=== PATIENT | male | born 1945 | race Caucasian/White ===

== ENCOUNTER 2018-10-26 21:47 | Emergency (ER) | payer MEDICARE ==
[2018-10-26 21:54] VITALS: RESP 18
[2018-10-26] MEDS: SODIUM CHLORIDE 0.9% 500 ML 500 ML IV SCH ×2 (22:53→23:31)
[2018-10-26 23:22] LABS: HCT 46.3 % (39.0-53.0); MCH 33.4 pg (25.0-35.0); MCHC 34.6 g/dL (31.0-37.0); MCV 96.5 fL (80.0-100.0); Mean Platelet Volume 6.7; Platelet Count 272 k/uL (150-450); WBC 19.7 k/uL (3.8-10.6)
[2018-10-26 23:25] LABS: Partial Thromboplastin Time 25.9 sec (22.0-30.0); Prothrombin Time 10.5 sec (9.0-12.0)
[2018-10-26 23:32] LABS: ALT 25 U/L (21-72); AST 27 U/L (17-59); African American GFR (CKD) >90 (>60 ml/min/1.73 sqM); Albumin 4.5 g/dL (3.5-5.0); Alkaline Phosphatase 80 U/L (38-126); Anion Gap 13 mmol/L; Blood Urea Nitrogen 24 mg/dL (9-20); Calcium 9.5 mg/dL (8.4-10.2); Carbon Dioxide 22 mmol/L (22-30); Chloride 104 mmol/L (98-107); Glucose 116 mg/dL (74-99); Potassium 3.9 mmol/L (3.5-5.1); Sodium 139 mmol/L (137-145); Total Bilirubin 1.5 mg/dL (0.2-1.3); Total Protein 7.4 g/dL (6.3-8.2)
[2018-10-26 23:43] LABS: Band Neutrophils % 15 %; Lymphocytes # (M) 0.79 k/uL (1.0-4.8); Monocytes # (M) 0.99 k/uL (0-1.0); Neutrophils % (M) 76 %; Nucleated Red Blood Cells 0 /100 WBC (0-0); Total Cells Counted 100
[2018-10-27 00:39] VITALS: BP 109/74; PULSE 88; TEMP 98.1
--- NOTE | 2018-10-27 00:50 | CT ---
EXAM: CT Abdomen and Pelvis With Intravenous Contrast CLINICAL HISTORY: Abdominal pain. Nausea and vomiting. TECHNIQUE: Axial computed tomography images of the abdomen and pelvis with intravenous contrast. CTDI is 9.3 mGy and DLP is 395.2 mGy-cm. This CT exam was performed using one or more of the following dose reduction techniques: automated exposure control, adjustment of the mA and/or kV according to patient size, and/or use of iterative reconstruction technique. COMPARISON: None. FINDINGS: Lung bases: Subsegmental atelectasis at the lung bases as well as the lingula is noted. Mediastinum: Small hiatal hernia ABDOMEN: Liver: Very mild fatty infiltration of the liver. 1.4 cm simple cyst at the upper pole region of the right kidney is noted. Gallbladder and bile ducts: Unremarkable. No calcified stones. No ductal dilation. Pancreas: Unremarkable. No mass. No ductal dilation. Spleen: Unremarkable. No splenomegaly. Adrenals: Unremarkable. No mass. Kidneys and ureters: No hydronephrosis. A 0.5 cm probable simple cyst in the lower pole region of the left kidney. Stomach and bowel: Fluid within the stomach. Minimal concentric thickening of the villa of the rectosigmoid of uncertain significance and etiology. Inflammatory and infectious etiology should be considered. Nonspecific bowel gas pattern. No obstruction. PELVIS: Appendix: No findings to suggest acute appendicitis. Bladder: Unremarkable. No mass. Reproductive: Unremarkable as visualized. ABDOMEN and PELVIS: Intraperitoneal space: Unremarkable. No free air. No significant fluid collection. Bones/joints: Moderate to severe degenerative disc disease of the spinal column. Mild osteoarthritic changes of the sacroiliac joints. Advanced degenerative disc disease of the spinal column. Multilevel vacuum discs are noted. No acute fracture. No dislocation. Soft tissues: Unremarkable. Vasculature: Atherosclerotic disease of the abdominal aorta is noted extending into the common iliac arteries without aneurysmal dilatation. Lymph nodes: Unremarkable. No enlarged lymph nodes. IMPRESSION: Minimal concentric thickening of the villa of the rectosigmoid of uncertain significance and etiology. Clinical correlation is advised. Simple renal cysts. Subsegmental atelectasis at the lung bases. Small hiatal hernia.
--- NOTE | 2018-10-27 01:12 | ED ---
Abdominal Pain HPI - General Chief Complaint: Abdominal Pain Stated Complaint: Vomiting/diarrhea Time Seen by Provider: 10/26/18 21:56 Source: patient Mode of arrival: ambulatory Limitations: no limitations - History of Present Illness Initial Comments: Russ is a pleasant 73-year-old gentleman who presents the emergency department today for evaluation of abdominal cramping and diarrhea. Patient denies any past medical history, he has lived for the past 7-[address] [facility] ([place], [place]) in [place]. He reports he was told recently that he is too old and is unsafe to live alone so he moved in with his son here in [place]. Patient does not have primary care physician. Patient states that he has gone to the emergency department as needed for medical care. He has no diagnoses that he is aware of and takes no medications. Patient states for the past couple days he's had abdominal cramping and nausea today he had multiple loose stools with no blood but decided to the ER for evaluation. She denies any fevers, chills, chest pain, shortness of breath. He doesn't believe he's had a colonoscopy in the past. Denies any history of diverticulitis diverticulosis. - Related Data Previous Rx's Medication Instructions Recorded Amoxic-Pot Clav 875-125Mg 1 tab PO Q12HR 7 Days #14 tablet 10/27/18 [Augmentin 875-125] Allergies Allergy/AdvReac Type Severity Reaction Status Date / Time No Known Allergies Allergy Verified 10/26/18 22:26 Review of Systems ROS Statement: Those systems with pertinent positive or pertinent negative responses have been documented in the HPI. ROS Other: All systems not noted in ROS Statement are negative. Past Medical History Past Medical History: No Reported History History of Any Multi-Drug Resistant Organisms: None Reported Past Surgical History: No Surgical Hx Reported Past Psychological History: PTSD Smoking Status: Never smoker Past Alcohol Use History: None Reported Past Drug Use History: None Reported General Exam - General Exam Comments Initial Comments: Physical Exam GENERAL: Patient is well-developed and well-nourished. Patient is nontoxic and well- hydrated and is in no distress. HENT: Normocephalic, Atraumatic. Normal dentition EYES: PERRL, EOMI PULMONARY: Unlabored respirations. No audible rales rhonchi or wheezing was noted. CARDIOVASCULAR: There is a regular rate and rhythm without any murmurs gallops or rubs. ABDOMEN: Soft and nontender with normal bowel sounds. No pulsatile masses No organomegaly SKIN: Skin is clear with no lesions or rashes and otherwise unremarkable. : Deferred NEUROLOGIC: Patient is alert and oriented x3. Moving all extremities spontaneously MUSCULOSKELETAL: Normal extremities with adequate strength and full range of motion. No lower extremity swelling or edema. No calf tenderness. PSYCHIATRIC: Normal psychiatric evaluation. Limitations: no limitations Course Vital Signs 10/26/18 10/27/18 21:49 00:38 Temperature 98.4 F 98.1 F Pulse Rate 114 H 88 Respiratory 18 18 Rate Blood Pressure 146/82 109/74 O2 Sat by Pulse 98 96 Oximetry Medical Decision Making - Medical Decision Making The patient was seen and evaluated history was obtained from the patient and son at bedside This is a 73-year-old gentleman with minimal outpatient medical care presenting with mild abdominal pain nausea, vomiting and diarrhea Labs and imaging were ordered given the patient's advanced age computed tomography scan was ordered Labs resulted with significant leukocytosis, otherwise relatively unremarkable Computed tomography scan suggestive of possible sigmoid colitis, these results were discussed with the patient and son at bedside. This time patient is eager for discharge home. Patient declining any pain medication is agreeable to discharge home with oral antibiotics. Patient will be referred to primary care physician for follow-up. - Lab Data Result diagrams: 10/26/18 22:35 10/26/18 22:35 Lab Results 10/26/18 10/26/18 10/26/18 Range/Units 22:35 22:35 22:35 WBC 19.7 H (3.8-10.6) k/uL RBC 4.80 (4.30-5.90) m/uL Hgb 16.0 (13.0-17.5) gm/dL Hct 46.3 (39.0-53.0) % MCV 96.5 (80.0-100.0) fL MCH 33.4 (25.0-35.0) pg MCHC 34.6 (31.0-37.0) g/dL RDW 14.0 (11.5-15.5) % Plt Count 272 (150-450) k/uL Neutrophils % (Manual) 76 % Band Neutrophils % 15 % Lymphocytes % (Manual) 4 % Monocytes % (Manual) 5 % Neutrophils # (Manual) 17.90 H (1.3-7.7) k/uL Lymphocytes # (Manual) 0.79 L (1.0-4.8) k/uL Monocytes # (Manual) 0.99 (0-1.0) k/uL Nucleated RBCs 0 (0-0) /100 WBC Manual Slide Review Performed PT (9.0-12.0) sec INR (<1.2) APTT (22.0-30.0) sec Sodium 139 (137-145) mmol/L Potassium 3.9 (3.5-5.1) mmol/L Chloride 104 (98-107) mmol/L Carbon Dioxide 22 (22-30) mmol/L Anion Gap 13 mmol/L BUN 24 H (9-20) mg/dL Creatinine 0.78 (0.66-1.25) mg/dL Est GFR (CKD-EPI)AfAm >90 (>60 ml/min/1.73 sqM) Est GFR (CKD-EPI)NonAf 89 (>60 ml/min/1.73 sqM) Glucose 116 H (74-99) mg/dL Plasma Lactic Acid Jaiden 1.8 (0.7-2.0) mmol/L Calcium 9.5 (8.4-10.2) mg/dL Total Bilirubin 1.5 H (0.2-1.3) mg/dL AST 27 (17-59) U/L ALT 25 (21-72) U/L Alkaline Phosphatase 80 (38-126) U/L Troponin I (0.000-0.034) ng/mL Total Protein 7.4 (6.3-8.2) g/dL Albumin 4.5 (3.5-5.0) g/dL 10/26/18 10/26/18 Range/Units 22:35 22:35 WBC (3.8-10.6) k/uL RBC (4.30-5.90) m/uL Hgb (13.0-17.5) gm/dL Hct (39.0-53.0) % MCV (80.0-100.0) fL MCH (25.0-35.0) pg MCHC (31.0-37.0) g/dL RDW (11.5-15.5) % Plt Count (150-450) k/uL Neutrophils % (Manual) % Band Neutrophils % % Lymphocytes % (Manual) % Monocytes % (Manual) % Neutrophils # (Manual) (1.3-7.7) k/uL Lymphocytes # (Manual) (1.0-4.8) k/uL Monocytes # (Manual) (0-1.0) k/uL Nucleated RBCs (0-0) /100 WBC Manual Slide Review PT 10.5 (9.0-12.0) sec INR 1.0 (<1.2) APTT 25.9 (22.0-30.0) sec Sodium (137-145) mmol/L Potassium (3.5-5.1) mmol/L Chloride (98-107) mmol/L Carbon Dioxide (22-30) mmol/L Anion Gap mmol/L BUN (9-20) mg/dL Creatinine (0.66-1.25) mg/dL Est GFR (CKD-EPI)AfAm (>60 ml/min/1.73 sqM) Est GFR (CKD-EPI)NonAf (>60 ml/min/1.73 sqM) Glucose (74-99) mg/dL Plasma Lactic Acid Jaiden (0.7-2.0) mmol/L Calcium (8.4-10.2) mg/dL Total Bilirubin (0.2-1.3) mg/dL AST (17-59) U/L ALT (21-72) U/L Alkaline Phosphatase (38-126) U/L Troponin I <0.012 (0.000-0.034) ng/mL Total Protein (6.3-8.2) g/dL Albumin (3.5-5.0) g/dL Disposition Clinical Impression: Colitis, Leukocytosis Disposition: HOME SELF-CARE Condition: Stable Instructions (If sedation given, give patient instructions): Colitis (ED) Prescriptions: Amoxic-Pot Clav 875-125Mg [Augmentin 875-125] 1 tab PO Q12HR 7 Days #14 tablet Is patient prescribed a controlled substance at d/c from ED?: No When asked, does pt state using other controlled substances?: No Referrals: None,Stated [Primary Care Provider] - 1-2 days Jamari Chi MD [STAFF PHYSICIAN] - 1-2 days
== END 2018-10-27 01:41 | disposition home or self-care (01) ==
LOC: EC 21:47
DX: K52.9 Noninfective gastroenteritis and colitis, unspecified (principal); D72.829 Elevated white blood cell count, unspecified
CPT/HCPCS: 36415; 93005; 80053; 83605; 84484; 85025; 85610; 85730; 87040; 74177; 99284; Q9967

== ENCOUNTER 2018-10-29 08:26 | Emergency (ER) | payer MEDICARE ==
[2018-10-29 08:40] VITALS: RESP 18
[2018-10-29] MEDS ORDERED: SODIUM CHLORIDE 0.9% 2,000 ML IV STA (09:07)
[2018-10-29] MEDS ORDERED: SODIUM CHLORIDE 0.9% 1,000 ML IV STA (09:07)
--- NOTE | 2018-10-29 09:09 | ED ---
Abdominal Pain HPI - General Chief Complaint: Abdominal Pain Stated Complaint: Colitis Time Seen by Provider: 10/29/18 08:50 Source: patient, RN notes reviewed, old records reviewed Mode of arrival: ambulatory Limitations: no limitations - History of Present Illness Initial Comments: Patient is a 73-year-old male presents emergency department today for evaluation tingling of diarrhea. Patient states that he isn't having crampy abdominal pain. He was here on Saturday evaluated at that time by Dr. Goodman. Upon reviewing her no Patient recently moved here from [place] on Saturday. He developed the diarrhea and cramping abdominal pain since Saturday. At that time is not have leukocytosis and was placed on antibiotics. He reports he's been taking them regularly. He states that last night he started to have severe Pedro's and chills. He states that he's had no history of sick contacts. He reports that he has not been drinking from [facility] or any significant travel history's besides living here from [place]. - Related Data Previous Rx's Medication Instructions Recorded Dicyclomine [Bentyl] 10 mg PO TID #9 capsule 10/29/18 Allergies Allergy/AdvReac Type Severity Reaction Status Date / Time No Known Allergies Allergy Verified 10/29/18 08:40 Review of Systems ROS Statement: Those systems with pertinent positive or pertinent negative responses have been documented in the HPI. ROS Other: All systems not noted in ROS Statement are negative. Past Medical History Past Medical History: No Reported History History of Any Multi-Drug Resistant Organisms: None Reported Past Surgical History: No Surgical Hx Reported Past Psychological History: PTSD Smoking Status: Never smoker Past Alcohol Use History: None Reported Past Drug Use History: None Reported General Exam - General Exam Comments Initial Comments: 73-year-old male. Alert and oriented. No distress. Limitations: no limitations General appearance: alert, in no apparent distress Head exam: Present: atraumatic, normocephalic, normal inspection Eye exam: Present: normal appearance, PERRL, EOMI. Absent: scleral icterus, conjunctival injection, periorbital swelling ENT exam: Present: normal exam, mucous membranes moist Neck exam: Present: normal inspection. Absent: tenderness, meningismus, lymphadenopathy Respiratory exam: Present: normal lung sounds bilaterally. Absent: respiratory distress, wheezes, rales, rhonchi, stridor Cardiovascular Exam: Present: regular rate, normal rhythm, normal heart sounds. Absent: systolic murmur, diastolic murmur, rubs, gallop, clicks GI/Abdominal exam: Present: soft, normal bowel sounds. Absent: distended, tenderness, guarding, rebound, rigid Extremities exam: Present: normal inspection, full ROM, normal capillary refill. Absent: tenderness, pedal edema, joint swelling, calf tenderness Back exam: Present: normal inspection Neurological exam: Present: alert, oriented X3, CN II-XII intact Psychiatric exam: Present: normal affect, normal mood Skin exam: Present: warm, dry, intact, normal color. Absent: rash Course Vital Signs 10/29/18 08:37 Temperature 98.3 F Pulse Rate 75 Respiratory 18 Rate Blood Pressure 106/69 O2 Sat by Pulse 98 Oximetry Medical Decision Making - Medical Decision Making This Patient is a 73-year-old male presents emergency department today for evaluation for recheck. He was diagnosed with colitis and states that he was having some cramping last night into today and felt the need to come in for reevaluation. Upon arrival here he states is no significant cramping is feeling well. He states that he has been having nonbloody stools. At this time patient's labwork was reviewed and did show a decrease of his white blood cell count from his last ER visit. He recently moved here from [place] does not have a PCP. Patient came here she does show some signs of colitis or enteritis. He is not vomiting. No signs of obstruction. Patient was given fluid boluses. Again nontender. Patient vital signs are stable. I discussed we can have the Patient continue the antibiotics that he's been taking for colitis of Augmentin. He is only had 3 doses of this. I discussed the Patient should follow-up with primary care physicians. He has not called them yet so I discussed that he needs to do so by the end of this week. Discussed discharge the Patient with the contents possible stool occult study. Discussed that he can follow-up with primary is return here for recheck. - Lab Data Result diagrams: 10/29/18 09:05 10/29/18 09:05 Lab Results 10/29/18 10/29/18 10/29/18 Range/Units 09:05 09:05 09:05 WBC 8.7 (3.8-10.6) k/uL RBC 4.41 (4.30-5.90) m/uL Hgb 14.9 (13.0-17.5) gm/dL Hct 43.1 (39.0-53.0) % MCV 97.7 (80.0-100.0) fL MCH 33.7 (25.0-35.0) pg MCHC 34.5 (31.0-37.0) g/dL RDW 13.7 (11.5-15.5) % Plt Count 243 (150-450) k/uL Neutrophils % 76 % Lymphocytes % 9 % Monocytes % 10 % Eosinophils % 3 % Basophils % 2 % Neutrophils # 6.6 (1.3-7.7) k/uL Lymphocytes # 0.8 L (1.0-4.8) k/uL Monocytes # 0.8 (0-1.0) k/uL Eosinophils # 0.2 (0-0.7) k/uL Basophils # 0.2 (0-0.2) k/uL PT (9.0-12.0) sec INR (<1.2) APTT (22.0-30.0) sec Sodium 140 (137-145) mmol/L Potassium 4.0 (3.5-5.1) mmol/L Chloride 105 (98-107) mmol/L Carbon Dioxide 26 (22-30) mmol/L Anion Gap 9 mmol/L BUN 10 (9-20) mg/dL Creatinine 0.80 (0.66-1.25) mg/dL Est GFR (CKD-EPI)AfAm >90 (>60 ml/min/1.73 sqM) Est GFR (CKD-EPI)NonAf 88 (>60 ml/min/1.73 sqM) Glucose 97 (74-99) mg/dL Plasma Lactic Acid Jaiden 1.2 (0.7-2.0) mmol/L Calcium 9.4 (8.4-10.2) mg/dL Total Bilirubin 1.0 (0.2-1.3) mg/dL AST 20 (17-59) U/L ALT 17 L (21-72) U/L Alkaline Phosphatase 68 (38-126) U/L Total Protein 7.1 (6.3-8.2) g/dL Albumin 4.3 (3.5-5.0) g/dL Amylase 84 (30-110) U/L Lipase 127 (23-300) U/L 10/29/18 Range/Units 09:05 WBC (3.8-10.6) k/uL RBC (4.30-5.90) m/uL Hgb (13.0-17.5) gm/dL Hct (39.0-53.0) % MCV (80.0-100.0) fL MCH (25.0-35.0) pg MCHC (31.0-37.0) g/dL RDW (11.5-15.5) % Plt Count (150-450) k/uL Neutrophils % % Lymphocytes % % Monocytes % % Eosinophils % % Basophils % % Neutrophils # (1.3-7.7) k/uL Lymphocytes # (1.0-4.8) k/uL Monocytes # (0-1.0) k/uL Eosinophils # (0-0.7) k/uL Basophils # (0-0.2) k/uL PT 10.2 (9.0-12.0) sec INR 0.9 (<1.2) APTT 21.4 L (22.0-30.0) sec Sodium (137-145) mmol/L Potassium (3.5-5.1) mmol/L Chloride (98-107) mmol/L Carbon Dioxide (22-30) mmol/L Anion Gap mmol/L BUN (9-20) mg/dL Creatinine (0.66-1.25) mg/dL Est GFR (CKD-EPI)AfAm (>60 ml/min/1.73 sqM) Est GFR (CKD-EPI)NonAf (>60 ml/min/1.73 sqM) Glucose (74-99) mg/dL Plasma Lactic Acid Jaiden (0.7-2.0) mmol/L Calcium (8.4-10.2) mg/dL Total Bilirubin (0.2-1.3) mg/dL AST (17-59) U/L ALT (21-72) U/L Alkaline Phosphatase (38-126) U/L Total Protein (6.3-8.2) g/dL Albumin (3.5-5.0) g/dL Amylase (30-110) U/L Lipase (23-300) U/L - Radiology Data Radiology results: report reviewed Correlate for enteritis or colitis. Follow-up is indicated. Disposition Clinical Impression: Colitis Disposition: HOME SELF-CARE Condition: Good Instructions (If sedation given, give patient instructions): Colitis (ED) Additional Instructions: Patient have a clear liquid or soft food diet. Recommended prompt follow-up with primary care physician. Return to the emergency department if any alarming signs or symptoms occur. Prescriptions: Dicyclomine [Bentyl] 10 mg PO TID #9 capsule Is patient prescribed a controlled substance at d/c from ED?: No Referrals: None,Stated [Primary Care Provider] - 1-2 days Time of Disposition: 11:10
[2018-10-29 09:34] LABS: ALT 17 U/L (21-72); AST 20 U/L (17-59); African American GFR (CKD) >90 (>60 ml/min/1.73 sqM); Albumin 4.3 g/dL (3.5-5.0); Alkaline Phosphatase 68 U/L (38-126); Amylase 84 U/L (30-110); Anion Gap 9 mmol/L; Basophils # (A) 0.2 k/uL (0-0.2); Basophils % (A) 2 %; Blood Urea Nitrogen 10 mg/dL (9-20); Calcium 9.4 mg/dL (8.4-10.2); Carbon Dioxide 26 mmol/L (22-30); Chloride 105 mmol/L (98-107); Eosinophils # (A) 0.2 k/uL (0-0.7); Eosinophils % (A) 3 %; Glucose 97 mg/dL (74-99); HCT 43.1 % (39.0-53.0); HGB 14.9 gm/dL (13.0-17.5); Lymphocytes # (A) 0.8 k/uL (1.0-4.8); Lymphocytes % (A) 9 %; MCH 33.7 pg (25.0-35.0); MCHC 34.5 g/dL (31.0-37.0); MCV 97.7 fL (80.0-100.0); Mean Platelet Volume 7.4; Monocytes # (A) 0.8 k/uL (0-1.0); Monocytes % (A) 10 %; Neutrophils # (A) 6.6 k/uL (1.3-7.7); Neutrophils % (A) 76 %; Platelet Count 243 k/uL (150-450); RBC 4.41 m/uL (4.30-5.90); RDW 13.7 % (11.5-15.5); Sodium 140 mmol/L (137-145); Total Protein 7.1 g/dL (6.3-8.2); WBC 8.7 k/uL (3.8-10.6)
[2018-10-29 09:35] LABS: INR 0.9 (<1.2); Prothrombin Time 10.2 sec (9.0-12.0)
[2018-10-29 09:36] LABS: Partial Thromboplastin Time 21.4 sec (22.0-30.0)
--- NOTE | 2018-10-29 09:37 | XR ---
KUB HISTORY: Abdominal pain, diarrhea and vomiting Frontal KUB submitted and correlated to prior CT 10/27/2018 Multiple air-fluid levels are present. No definite bowel distention. Lung bases are clear. No pneumop eritoneum. Scoliotic curvature present in the lumbar spine, there is degenerative disc change. Phlebo lith noted within the pelvis. IMPRESSION: Correlate for enteritis, colitis, follow-up as indicated.
[2018-10-29] MEDS ORDERED: DICYCLOMINE 10 MG CAP PO STA (11:06)
--- NOTE | 2018-10-29 11:12 | ED ---
Medical Decision Making - Lab Data Result diagrams: 10/29/18 09:05 10/29/18 09:05 Lab Results 10/29/18 10/29/18 10/29/18 Range/Units 09:05 09:05 09:05 WBC 8.7 (3.8-10.6) k/uL RBC 4.41 (4.30-5.90) m/uL Hgb 14.9 (13.0-17.5) gm/dL Hct 43.1 (39.0-53.0) % MCV 97.7 (80.0-100.0) fL MCH 33.7 (25.0-35.0) pg MCHC 34.5 (31.0-37.0) g/dL RDW 13.7 (11.5-15.5) % Plt Count 243 (150-450) k/uL Neutrophils % 76 % Lymphocytes % 9 % Monocytes % 10 % Eosinophils % 3 % Basophils % 2 % Neutrophils # 6.6 (1.3-7.7) k/uL Lymphocytes # 0.8 L (1.0-4.8) k/uL Monocytes # 0.8 (0-1.0) k/uL Eosinophils # 0.2 (0-0.7) k/uL Basophils # 0.2 (0-0.2) k/uL PT (9.0-12.0) sec INR (<1.2) APTT (22.0-30.0) sec Sodium 140 (137-145) mmol/L Potassium 4.0 (3.5-5.1) mmol/L Chloride 105 (98-107) mmol/L Carbon Dioxide 26 (22-30) mmol/L Anion Gap 9 mmol/L BUN 10 (9-20) mg/dL Creatinine 0.80 (0.66-1.25) mg/dL Est GFR (CKD-EPI)AfAm >90 (>60 ml/min/1.73 sqM) Est GFR (CKD-EPI)NonAf 88 (>60 ml/min/1.73 sqM) Glucose 97 (74-99) mg/dL Plasma Lactic Acid Jaiden 1.2 (0.7-2.0) mmol/L Calcium 9.4 (8.4-10.2) mg/dL Total Bilirubin 1.0 (0.2-1.3) mg/dL AST 20 (17-59) U/L ALT 17 L (21-72) U/L Alkaline Phosphatase 68 (38-126) U/L Total Protein 7.1 (6.3-8.2) g/dL Albumin 4.3 (3.5-5.0) g/dL Amylase 84 (30-110) U/L Lipase 127 (23-300) U/L 10/29/18 Range/Units 09:05 WBC (3.8-10.6) k/uL RBC (4.30-5.90) m/uL Hgb (13.0-17.5) gm/dL Hct (39.0-53.0) % MCV (80.0-100.0) fL MCH (25.0-35.0) pg MCHC (31.0-37.0) g/dL RDW (11.5-15.5) % Plt Count (150-450) k/uL Neutrophils % % Lymphocytes % % Monocytes % % Eosinophils % % Basophils % % Neutrophils # (1.3-7.7) k/uL Lymphocytes # (1.0-4.8) k/uL Monocytes # (0-1.0) k/uL Eosinophils # (0-0.7) k/uL Basophils # (0-0.2) k/uL PT 10.2 (9.0-12.0) sec INR 0.9 (<1.2) APTT 21.4 L (22.0-30.0) sec Sodium (137-145) mmol/L Potassium (3.5-5.1) mmol/L Chloride (98-107) mmol/L Carbon Dioxide (22-30) mmol/L Anion Gap mmol/L BUN (9-20) mg/dL Creatinine (0.66-1.25) mg/dL Est GFR (CKD-EPI)AfAm (>60 ml/min/1.73 sqM) Est GFR (CKD-EPI)NonAf (>60 ml/min/1.73 sqM) Glucose (74-99) mg/dL Plasma Lactic Acid Jaiden (0.7-2.0) mmol/L Calcium (8.4-10.2) mg/dL Total Bilirubin (0.2-1.3) mg/dL AST (17-59) U/L ALT (21-72) U/L Alkaline Phosphatase (38-126) U/L Total Protein (6.3-8.2) g/dL Albumin (3.5-5.0) g/dL Amylase (30-110) U/L Lipase (23-300) U/L Disposition Clinical Impression: Colitis Disposition: HOME SELF-CARE Condition: Good Instructions (If sedation given, give patient instructions): Colitis (ED) Additional Instructions: Patient have a clear liquid or soft food diet. Recommended prompt follow-up with primary care physician. Return to the emergency department if any alarming signs or symptoms occur. Prescriptions: Dicyclomine [Bentyl] 10 mg PO TID #9 capsule Is patient prescribed a controlled substance at d/c from ED?: No Referrals: None,Stated [Primary Care Provider] - 1-2 days Tanja Chaudhry MD [STAFF PHYSICIAN] - 1-2 days Time of Disposition: 11:12
[2018-10-29 11:51] VITALS: BP 118/76; PULSE 74; TEMP 97.7
[2018-10-29 12:43] LABS: Appearance,Urine Clear (Clear); Bilirubin,Urine Negative (Negative); Blood,Urine Negative (Negative); Color,Urine Yellow; Glucose,Urine (UA) Negative (Negative); Ketones,Urine Negative (Negative); Leukocyte Esterase,Urine Negative (Negative); Nitrite,Urine Negative (Negative); Protein,Urine Trace (Negative); Specific Gravity,Urine 1.013 (1.001-1.035); Urobilinogen,Urine <2.0 mg/dL (<2.0)
== END 2018-10-29 11:50 | disposition home or self-care (01) ==
LOC: EC 08:26
DX: K52.9 Noninfective gastroenteritis and colitis, unspecified (principal)
CPT/HCPCS: 36415; 74018; 80053; 81003; 82150; 83605; 83690; 85025; 85610; 85730; 87045; 87046; 96360; 96361; 99284

== ENCOUNTER 2018-11-06 08:59 | Inpatient (IN) | payer MEDICARE ==
[2018-11-06] MEDS ORDERED: SODIUM CHLORIDE 0.9% 1,000 ML IV STA ×2 (09:33)
[2018-11-06] MEDS ORDERED: HYDROmorphone 0.5 MG/0.5 ML SYRINGE IVP STA (09:33)
[2018-11-06] MEDS ORDERED: ONDANSETRON 4 MG/2 ML VIAL IVP STA (09:33)
--- NOTE | 2018-11-06 09:39 | ED ---
Nausea/Vomiting/Diarrhea HPI - General Chief complaint: Nausea/Vomiting/Diarrhea Stated complaint: NVD Time Seen by Provider: 11/06/18 09:14 Source: patient, EMS, RN notes reviewed, old records reviewed Mode of arrival: EMS Limitations: no limitations - History of Present Illness Initial comments: This is a 73-year-old male with a history of colitis who presents with complaints of one half weeks of persistent episodes of upper abdominal pain nausea vomiting and diarrhea. He states it feels similar to his previous episodes he feels lightheaded dizzy decreased oral intake some left upper quadrant area pain. He denies any overt fevers chills sweats dysuria he does state his urine is more concentrated than usual. No other modifying factors MD complaint: nausea, vomiting, diarrhea, abdominal pain - Related Data Home Medications Medication Instructions Recorded Confirmed No Known Home Medications 11/06/18 11/06/18 Allergies Allergy/AdvReac Type Severity Reaction Status Date / Time No Known Allergies Allergy Verified 11/06/18 09:13 Review of Systems ROS Statement: Those systems with pertinent positive or pertinent negative responses have been documented in the HPI. ROS Other: All systems not noted in ROS Statement are negative. Past Medical History Past Medical History: No Reported History History of Any Multi-Drug Resistant Organisms: None Reported Past Surgical History: No Surgical Hx Reported Past Psychological History: PTSD Smoking Status: Never smoker Past Alcohol Use History: None Reported Past Drug Use History: None Reported General Exam - General Exam Comments Initial Comments: This is a well-developed asthenic appearing awake alert oriented 3 Limitations: no limitations General appearance: alert, in no apparent distress Head exam: Present: atraumatic, normocephalic, normal inspection Eye exam: Present: normal appearance, PERRL, EOMI. Absent: scleral icterus, conjunctival injection, periorbital swelling ENT exam: Present: mucous membranes dry Neck exam: Present: normal inspection. Absent: tenderness, meningismus, lymphadenopathy Respiratory exam: Present: normal lung sounds bilaterally. Absent: respiratory distress, wheezes, rales, rhonchi, stridor Cardiovascular Exam: Present: regular rate, normal rhythm, normal heart sounds. Absent: systolic murmur, diastolic murmur, rubs, gallop, clicks GI/Abdominal exam: Present: soft, tenderness (Left upper quadrant tenderness palpation no guarding rebound masses or bruits), normal bowel sounds. Absent: distended, guarding, rebound, rigid Extremities exam: Present: normal inspection, full ROM, normal capillary refill. Absent: tenderness, pedal edema, joint swelling, calf tenderness Back exam: Present: normal inspection Neurological exam: Present: alert, oriented X3, CN II-XII intact Psychiatric exam: Present: normal affect, normal mood Skin exam: Present: warm, dry, intact, normal color. Absent: rash Course Vital Signs 11/06/18 11/06/18 11/06/18 09:01 11:25 12:58 Temperature 97.9 F Pulse Rate 63 80 68 Respiratory 16 20 18 Rate Blood Pressure 113/73 109/66 100/58 O2 Sat by Pulse 98 100 96 Oximetry Medical Decision Making - Medical Decision Making I did discuss the findings with the patient. Patient be admitted case is discussed with Dr. baron - Lab Data Result diagrams: 11/06/18 09:45 11/06/18 09:45 Lab Results 11/06/18 11/06/18 11/06/18 Range/Units 09:45 09:45 09:45 WBC 20.0 H (3.8-10.6) k/uL RBC 4.92 (4.30-5.90) m/uL Hgb 16.7 (13.0-17.5) gm/dL Hct 47.7 (39.0-53.0) % MCV 97.1 (80.0-100.0) fL MCH 33.9 (25.0-35.0) pg MCHC 34.9 (31.0-37.0) g/dL RDW 13.6 (11.5-15.5) % Plt Count 223 (150-450) k/uL Neutrophils % (Manual) 84 % Band Neutrophils % 3 % Lymphocytes % (Manual) 5 % Monocytes % (Manual) 8 % Neutrophils # (Manual) 17.40 H (1.3-7.7) k/uL Lymphocytes # (Manual) 1.00 (1.0-4.8) k/uL Monocytes # (Manual) 1.60 H (0-1.0) k/uL Nucleated RBCs 0 (0-0) /100 WBC Manual Slide Review Performed RBC Morphology Normal Sodium 142 (137-145) mmol/L Potassium 3.9 (3.5-5.1) mmol/L Chloride 105 (98-107) mmol/L Carbon Dioxide 26 (22-30) mmol/L Anion Gap 11 mmol/L BUN 23 H (9-20) mg/dL Creatinine 0.91 (0.66-1.25) mg/dL Est GFR (CKD-EPI)AfAm >90 (>60 ml/min/1.73 sqM) Est GFR (CKD-EPI)NonAf 83 (>60 ml/min/1.73 sqM) Glucose 108 H (74-99) mg/dL Calcium 9.1 (8.4-10.2) mg/dL Magnesium 2.1 (1.6-2.3) mg/dL Total Bilirubin 1.0 (0.2-1.3) mg/dL AST 20 (17-59) U/L ALT 21 (21-72) U/L Alkaline Phosphatase 75 (38-126) U/L Creatine Kinase 32 L (55-170) U/L Troponin I <0.012 (0.000-0.034) ng/mL Total Protein 7.2 (6.3-8.2) g/dL Albumin 4.3 (3.5-5.0) g/dL Lipase 62 (23-300) U/L Urine Color Urine Appearance (Clear) Urine pH (5.0-8.0) Ur Specific [place] (1.001-1.035) Urine Protein (Negative) Urine Glucose (UA) (Negative) Urine Ketones (Negative) Urine Blood (Negative) Urine Nitrite (Negative) Urine Bilirubin (Negative) Urine Urobilinogen (<2.0) mg/dL Ur Leukocyte Esterase (Negative) Urine RBC (0-5) /hpf Urine WBC (0-5) /hpf Hyaline Casts (0-2) /lpf Urine Mucus (None) /hpf 11/06/18 Range/Units 11:24 WBC (3.8-10.6) k/uL RBC (4.30-5.90) m/uL Hgb (13.0-17.5) gm/dL Hct (39.0-53.0) % MCV (80.0-100.0) fL MCH (25.0-35.0) pg MCHC (31.0-37.0) g/dL RDW (11.5-15.5) % Plt Count (150-450) k/uL Neutrophils % (Manual) % Band Neutrophils % % Lymphocytes % (Manual) % Monocytes % (Manual) % Neutrophils # (Manual) (1.3-7.7) k/uL Lymphocytes # (Manual) (1.0-4.8) k/uL Monocytes # (Manual) (0-1.0) k/uL Nucleated RBCs (0-0) /100 WBC Manual Slide Review RBC Morphology Sodium (137-145) mmol/L Potassium (3.5-5.1) mmol/L Chloride (98-107) mmol/L Carbon Dioxide (22-30) mmol/L Anion Gap mmol/L BUN (9-20) mg/dL Creatinine (0.66-1.25) mg/dL Est GFR (CKD-EPI)AfAm (>60 ml/min/1.73 sqM) Est GFR (CKD-EPI)NonAf (>60 ml/min/1.73 sqM) Glucose (74-99) mg/dL Calcium (8.4-10.2) mg/dL Magnesium (1.6-2.3) mg/dL Total Bilirubin (0.2-1.3) mg/dL AST (17-59) U/L ALT (21-72) U/L Alkaline Phosphatase (38-126) U/L Creatine Kinase (55-170) U/L Troponin I (0.000-0.034) ng/mL Total Protein (6.3-8.2) g/dL Albumin (3.5-5.0) g/dL Lipase (23-300) U/L Urine Color Yellow Urine Appearance Cloudy (Clear) Urine pH 6.0 (5.0-8.0) Ur Specific [place] 1.027 (1.001-1.035) Urine Protein 1+ H (Negative) Urine Glucose (UA) Negative (Negative) Urine Ketones Trace H (Negative) Urine Blood Negative (Negative) Urine Nitrite Negative (Negative) Urine Bilirubin Negative (Negative) Urine Urobilinogen <2.0 (<2.0) mg/dL Ur Leukocyte Esterase Negative (Negative) Urine RBC 4 (0-5) /hpf Urine WBC 9 H (0-5) /hpf Hyaline Casts 3 H (0-2) /lpf Urine Mucus Many H (None) /hpf - Radiology Data Radiology results: report reviewed (I did review the imaging and report evidence of multiple air-fluid levels.CAT scan consistent with enterocolitis), image reviewed Disposition Clinical Impression: Colitis, Leukocytosis, Dehydration, Abdominal pain, Intractable nausea and vomiting Disposition: ADMITTED IP TO THIS [facility] Condition: Fair Referrals: None,Stated [Primary Care Provider] - 1-2 days
[2018-11-06 10:10] LABS: ALT 21 U/L (21-72); AST 20 U/L (17-59); African American GFR (CKD) >90 (>60 ml/min/1.73 sqM); Albumin 4.3 g/dL (3.5-5.0); Alkaline Phosphatase 75 U/L (38-126); Anion Gap 11 mmol/L; Blood Urea Nitrogen 23 mg/dL (9-20); Calcium 9.1 mg/dL (8.4-10.2); Carbon Dioxide 26 mmol/L (22-30); Chloride 105 mmol/L (98-107); Creatine Kinase 32 U/L (55-170); Glucose 108 mg/dL (74-99); Magnesium 2.1 mg/dL (1.6-2.3); Potassium 3.9 mmol/L (3.5-5.1); Sodium 142 mmol/L (137-145); Total Protein 7.2 g/dL (6.3-8.2)
[2018-11-06 10:48] LABS: HCT 47.7 % (39.0-53.0); HGB 16.7 gm/dL (13.0-17.5); MCH 33.9 pg (25.0-35.0); MCHC 34.9 g/dL (31.0-37.0); MCV 97.1 fL (80.0-100.0); Mean Platelet Volume 6.9; Platelet Count 223 k/uL (150-450); RBC 4.92 m/uL (4.30-5.90); RDW 13.6 % (11.5-15.5)
[2018-11-06 11:22] LABS: Band Neutrophils % 3 %; Neutrophils % (M) 84 %
[2018-11-06 11:23] LABS: Nucleated Red Blood Cells 0 /100 WBC (0-0); Total Cells Counted 100
--- NOTE | 2018-11-06 11:34 | XR ---
KUB HISTORY: Nausea and vomiting for 2 weeks 2 views of the abdomen correlated to prior dated 10/29/2018 Multiple air-fluid levels are present without bowel distention. Lung bases are clear. There is a scol iotic curvature in the visualized spine, degenerative disc changes are present. No evident pneumoperi toneum. No pathologic calcification is seen. IMPRESSION: Correlate for enteritis, colitis, ileus. Follow-up as indicated.
[2018-11-06 11:41] LABS: Appearance,Urine Cloudy (Clear); Bilirubin,Urine Negative (Negative); Blood,Urine Negative (Negative); Color,Urine Yellow; Glucose,Urine (UA) Negative (Negative); Hyaline Casts,Urine 3 /lpf (0-2); Ketones,Urine Trace (Negative); Leukocyte Esterase,Urine Negative (Negative); Mucus,Urine Many /hpf; Nitrite,Urine Negative (Negative); Protein,Urine 1+ (Negative); RBC,Urine 4 /hpf (0-5); Specific Gravity,Urine 1.027 (1.001-1.035); Urobilinogen,Urine <2.0 mg/dL (<2.0); WBC,Urine 9 /hpf (0-5)
--- NOTE | 2018-11-06 13:44 | CT ---
EXAMINATION TYPE: CT abdomen pelvis w con DATE OF EXAM: 11/06/2018 COMPARISON: 10/27/2018 HISTORY: 73-year-old male periumbilical pain, ileus, nausea, vomiting, diarrhea TECHNIQUE: Contiguous axial scanning of the abdomen and pelvis following administration of 100 ml Iso kaitlynn 300 IV contrast. Delayed images through the kidneys and coronal/sagittal reconstructions perform ed. CT DLP: 879.1 mGycm Automated exposure control for dose reduction was used. FINDINGS: Heart normal size without pericardial effusion. Strandy atelectasis or scarring in the lower lungs wi thout pleural effusion. Mild circumferential wall thickening of the distal segment of the esophagus increased from recent charles or. No focal liver lesion or biliary ductal dilatation. Portal venous system is patent. Right adrenal gland, spleen with splenule, and pancreas appear within normal limits. 1.8 cm cortical cyst posterior right kidney. A couple subcentimeter hypodensities within both kidneys , too small for accurate CT characterization, likely additional small cysts. Minimal nodularity of the left adrenal gland and 1.2 cm is unchanged and statistically represents a b enign adrenal adenoma. There is liquid stool throughout the colon with prominent fluid-filled small bowel loops mid and lowe r abdomen and pelvis. Small bowel loops measure up to 2.8 cm. No discrete transition point is seen. Scattered fold thickening within the right side of the colon. A few mildly enlarged left sided abdomi nal mesenteric lymph nodes measuring up to 1 cm. Appendix not discretely visualized. No dilated small bowel or free air. Mild circumferential bladder wall thickening. Prostate gland measures 4.1 cm wide. Pelvic phleboliths . There is trace pelvic free fluid which is new from prior. No pelvic lymphadenopathy. Bones: Advanced degenerative disc disease throughout the lumbar spine with hypertrophic facet arthrop athy. IMPRESSION: 1. EXTENSIVE SCATTERED FLUID-FILLED SMALL BOWEL LOOPS THROUGHOUT THE ABDOMEN AND PELVIS, LIQUID STOOL THROUGHOUT THE COLON, AND SCATTERED FOLD THICKENING WITHIN THE RIGHT SIDE OF THE COLON. CORRELATE FO R ENTEROCOLITIS OR GENERALIZED ILEUS. 2. MILD CIRCUMFERENTIAL WALL THICKENING OF THE DISTAL ESOPHAGUS SEEMS NEW FROM RECENT PRIOR. QUERY AN Y SYMPTOMS OF ESOPHAGITIS. 3. NEW TRACE PELVIC FREE FLUID, ABNORMAL IN A MALE PATIENT, AND LIKELY REACTIVE.
[2018-11-06] MEDS ORDERED: NALOXONE 0.4 MG/ML 1 ML VIAL IV PRN (14:51)
[2018-11-06] MEDS ORDERED: HYDROmorphone 0.5 MG/0.5 ML SYRINGE IVP PRN (14:51)
[2018-11-06] MEDS ORDERED: PIPERACILLIN-TAZOBACTAM 3.375 GM in SODIUM CHLORIDE 0.9% 100 ML IVPB STA (14:54)
[2018-11-06] MEDS ORDERED: SODIUM CHLORIDE 0.9% 1,000 ML IV SCH (15:00)
[2018-11-06] MEDS ORDERED: TEMAZEPAM 15 MG CAP PO PRN (17:59)
[2018-11-06] MEDS ORDERED: ONDANSETRON 4 MG/2 ML VIAL IVP PRN (17:59)
[2018-11-06] MEDS ORDERED: HYDROcodone/APAP 5-325MG 1 EACH TAB PO PRN (17:59)
[2018-11-06] MEDS ORDERED: ALPRAZolam 0.25 MG TAB PO PRN (17:59)
[2018-11-06] MEDS: VENLAFAXINE HCL 75 MG TAB PO SCH (18:16)
[2018-11-06] MEDS: SODIUM CHLORIDE 0.9% 1,000 ML IV SCH (18:17)
[2018-11-06] MEDS: metroNIDAZOLE-NS PMX 500 MG in SALINE 1 100ML.BAG IVPB SCH (18:20)
[2018-11-06] MEDS ORDERED: LEVOFLOXACIN 500MG-D5W PMX 500 MG in DEXTROSE/WATER 1 100ML.BAG IVPB SCH (19:00)
[2018-11-06] MEDS: lamoTRIgine 100 MG TAB PO SCH (20:36)
[2018-11-06] MEDS: HEPARIN SODIUM,PORCINE 5,000 UNIT/ML 1 ML VIAL SQ SCH (20:36)
[2018-11-06] MEDS: MELATONIN 3 MG TABLET PO SCH (20:36)
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
--- NOTE | 2018-11-06 22:53 | CONS ---
CONSULTATION DATE OF DICTATION: October,. REQUESTING PHYSICIAN: Dr. Washburn. REASON FOR CONSULTATION: Nausea, vomiting, diarrhea. HISTORY OF PRESENT ILLNESS: The patient is a 73-year-old pleasant white male who came to the emergency room complaining of abdominal pain, nausea, vomiting, and diarrhea for the last 10 days duration. The patient states that he had been to the emergency room twice and was discharged home after hydration and was given outpatient antibiotics which he took for 2 days. He continued to have progressive symptoms. Yesterday he had at least 10 episodes of emesis and about 10 episodes of loose watery bowel movements. He denies any fever, chills, or night sweats. No rectal bleeding or melena. His symptoms progressively got worse and hence he came into the emergency room and subsequently admitted to the hospital for further evaluation. He denies any antibiotic use prior to the onset of these symptoms. No new medications that were started recently. He denies any travel history and does not recall having these symptoms in the past. PAST MEDICAL HISTORY: Anxiety and depression. MEDICATIONS: At home the patient states that he takes some psych medications, but does not know the names. ALLERGIES: None. SOCIAL HISTORY: Chronic smoker. No alcohol use. FAMILY HISTORY: Unremarkable. REVIEW OF SYSTEMS: CARDIOPULMONARY: He denies any chest pain, or shortness of breath. GENITOURINARY: No dysuria or hematuria. MUSCULOSKELETAL: Unremarkable. SKIN: Unremarkable. ENDOCRINE: Unremarkable. PSYCHIATRIC: Unremarkable. NEUROLOGY: Unremarkable. ENT/VISION: Unremarkable. CONSTITUTIONAL: No recent weight loss. No fever, chills, night sweats. PHYSICAL EXAMINATION: Blood pressure 122/72, pulse rate is 67, temperature 98. HEENT examination unremarkable. Conjunctivae pink. Sclerae anicteric. Oral cavity no lesions. NECK: No JVD or lymph node enlargement. CHEST: Clear to auscultation. HEART: Regular rate and rhythm. ABDOMEN: Soft, nontender, nondistended. Bowel sounds are positive. No organomegaly. EXTREMITIES: No pedal edema. SKIN: No rashes. NEUROLOGICAL: He is alert and oriented x3. No focal deficits. LABS: Done at the time of admission to the hospital: WBC 20, hemoglobin 16.7, platelets are normal. Basic metabolic panel, BUN 23, creatinine 0.9. ALT, AST, T-bilirubin, alkaline phosphatase are normal. Urinalysis is negative. IMPRESSION: This is a patient who was admitted to hospital with acute onset of nausea, vomiting, diarrhea for the last 10 days duration. He did have a CT of the abdomen and pelvis in the emergency room that showed liquid stool noted in the entire colon suggestive of enterocolitis. There was mild circumferential wall thickening of the distal esophagus noted. Small amount of pelvic free fluid noted. The symptoms are suggestive of possible infectious colitis/viral gastroenteritis. Rule out C diff colitis. RECOMMENDATION: 1. Stool studies for C difficile toxin and cultures. 2. Clear liquid diet. 3. Antiemetics as needed. 4. Repeat labs in the morning and we will follow him closely during his hospital stay. Thank you for this consultation. SUMEET / EVELINAN: [id number] /
[2018-11-06 23:27] LABS: Amphetamine Screen,Urine Not Detected (NotDetected); Barbiturate Screen,Urine Not Detected (NotDetected); Benzodiazepines Screen,Urine Not Detected (NotDetected); Cocaine Screen,Urine Not Detected (NotDetected); Methadone Screen, Urine Not Detected (NotDetected); Opiate Screen,Urine Not Detected (NotDetected); Oxycodone Screen, Urine Not Detected (NotDetected); Phencyclidine Screen,Urine Not Detected (NotDetected); Tricyclic Antidepressant,Urine Not Detected (NotDetected); Urn Cannabinoid Scrn Not Detected (NotDetected)
[2018-11-07] MEDS: metroNIDAZOLE-NS PMX 500 MG in SALINE 1 100ML.BAG IVPB SCH ×2 (02:26→07:52)
[2018-11-07] MEDS: SODIUM CHLORIDE 0.9% 1,000 ML IV SCH ×2 (07:07→19:03)
[2018-11-07] MEDS ORDERED: PANTOPRAZOLE 40 MG TABLET PO SCH (07:30)
[2018-11-07] MEDS: VENLAFAXINE HCL 75 MG TAB PO SCH (07:54)
[2018-11-07] MEDS: HEPARIN SODIUM,PORCINE 5,000 UNIT/ML 1 ML VIAL SQ SCH ×2 (07:54→21:22)
[2018-11-07] MEDS: PANTOPRAZOLE 40 MG/10 ML VIAL IV SCH (07:54)
[2018-11-07 08:20] LABS: African American GFR (CKD) >90 (>60 ml/min/1.73 sqM); Anion Gap 6 mmol/L; Blood Urea Nitrogen 12 mg/dL (9-20); Calcium 8.5 mg/dL (8.4-10.2); Carbon Dioxide 28 mmol/L (22-30); Chloride 107 mmol/L (98-107); Glucose 87 mg/dL (74-99); Sodium 141 mmol/L (137-145)
[2018-11-07 08:24] LABS: Basophils # (A) 0.2 k/uL (0-0.2); Basophils % (A) 2 %; Eosinophils # (A) 0.4 k/uL (0-0.7); Eosinophils % (A) 5 %; HGB 13.8 gm/dL (13.0-17.5); Lymphocytes # (A) 1.1 k/uL (1.0-4.8); Lymphocytes % (A) 13 %; MCH 33.4 pg (25.0-35.0); MCHC 34.5 g/dL (31.0-37.0); MCV 96.7 fL (80.0-100.0); Mean Platelet Volume 6.8; Monocytes # (A) 0.6 k/uL (0-1.0); Monocytes % (A) 7 %; Neutrophils # (A) 5.6 k/uL (1.3-7.7); Neutrophils % (A) 70 %; Platelet Count 193 k/uL (150-450); RBC 4.14 m/uL (4.30-5.90); RDW 13.6 % (11.5-15.5); WBC 7.9 k/uL (3.8-10.6)
--- NOTE | 2018-11-07 17:09 | P.PN ---
Subjective Progress Note Date: 11/07/18 Principal diagnosis: Enterocolitis Leukocytosis possibly reactive Possible viral gastroenteritis 73-year-old male patient presented to ED with several days of abdominal pain, nausea/vomiting and diarrhea; computed tomography scan of abdomen in ED showed extensive scattered fluid-filled small bowel loops throughout the abdomen and pelvis; liquid stool in colon and scattered thickening of the right side of: Suspicious for enterocolitis Objective - Vital Signs Vital signs: Vital Signs Temp 97.9 F 11/07/18 04:45 Pulse 61 11/07/18 04:45 Resp 16 11/07/18 04:45 BP 93/57 11/07/18 04:45 Pulse Ox 94 L 11/07/18 04:45 Intake & Output 11/06/18 11/07/18 11/07/18 18:59 06:59 18:59 Weight 68.039 kg Other: Voiding Method Toilet Urinal # Voids 2 # Bowel Movements 1 - Exam PHYSICAL EXAMINATION: GENERAL: The patient is alert and oriented x3, not in any acute distress. Well developed, well nourished. HEENT: Pupils are round and equally reacting to light. EOMI. No scleral icterus. No conjunctival pallor. Normocephalic, atraumatic. No pharyngeal erythema. No thyromegaly. CARDIOVASCULAR: S1 and S2 present. No murmurs, rubs, or gallops. PULMONARY: Chest is clear to auscultation, no wheezing or crackles. ABDOMEN: Soft, nontender, nondistended, normoactive bowel sounds. No palpable organomegaly. MUSCULOSKELETAL: No joint swelling or deformity. EXTREMITIES: No cyanosis, clubbing, or pedal edema. NEUROLOGICAL: Gross neurological examination did not reveal any focal deficits. SKIN: No rashes. - Labs CBC & Chem 7: 11/07/18 07:51 11/07/18 07:51 Labs: Abnormal Lab Results - Last 24 Hours (Table) 11/06/18 11/06/18 11/07/18 Range/Units 09:45 11:24 07:51 WBC 20.0 H (3.8-10.6) k/uL RBC 4.14 L (4.30-5.90) m/uL Neutrophils # (Manual) 17.40 H (1.3-7.7) k/uL Monocytes # (Manual) 1.60 H (0-1.0) k/uL Urine Protein 1+ H (Negative) Urine Ketones Trace H (Negative) Urine WBC 9 H (0-5) /hpf Hyaline Casts 3 H (0-2) /lpf Urine Mucus Many H (None) /hpf Assessment and Plan Assessment: 1. Acute nausea vomiting and diarrhea; possible internal colitis - Start patient on clear liquid diet; GI is consulted for further recommendations 2. Rule out acute diarrheal disorder versus viral gastroenteritis - Stool for C. diff toxin, culture and sensitivity along with ova and parasites; stool samples could be obtained yet - We will hold off on IV antibiotic treatment; monitor patient clinically and aw ait GI recommendations 3. Leukocytosis; possibly reactive; blood cultures are done upon admission; monitor CBC and follow blood cultures 4. History of pneumothorax; chronic chest tube drainage 5. Anxiety/depression/PTSD; stable on current regimen 6. DVT prophylaxis CODE STATUS; full code Time with Patient: Greater than 30
--- NOTE | 2018-11-07 19:58 | P.PN ---
Subjective Progress Note Date: 11/07/18 Principal diagnosis: Diarrhea Patient is seen lying in bed reporting that he is tolerating his diet. No abdominal pain. No bowel movements today. Objective - Vital Signs Vital signs: Vital Signs Temp 97.2 F L 11/07/18 12:57 Pulse 67 11/07/18 12:57 Resp 16 11/07/18 12:57 BP 131/84 11/07/18 12:57 Pulse Ox 98 11/07/18 12:57 Intake & Output 11/07/18 11/07/18 11/08/18 06:59 18:59 06:59 Intake Total 1680 Balance 1680 Intake: IV 600 Sodium Chloride 0.9% 1, 600 000 ml @ 75 mls/hr IV . [id number] LAM Rx#:[id number] Oral 1080 Other: Voiding Method Toilet Urinal # Voids 2 2 # Bowel Movements 1 - Exam On physical examination, patient appears comfortable in no apparent distress. HEAD: Normocephalic, atraumatic. EYES: No scleral icterus. No conjunctival injection. MOUTH: No lesions, tongue midline. NECK: Trachea midline, no gross abnormalities. CHEST: Clear to auscultation with no wheezing or rhonchi appreciated. HEART: Regular rate and rhythm. ABDOMEN: Soft, obese. Bowel sounds are positive. No organomegaly. No guarding or rigidity. EXTREMITIES: No pedal edema. SKIN: No rashes, no jaundice. NEUROLOGIC: Alert and oriented x3. No focal deficits. - Labs CBC & Chem 7: 11/07/18 07:51 11/07/18 07:51 Labs: Abnormal Lab Results - Last 24 Hours (Table) 11/07/18 Range/Units 07:51 RBC 4.14 L (4.30-5.90) m/uL Microbiology - Last 24 Hours (Table) 11/07/18 14:00 Stool Culture - Preliminary Stool 11/06/18 15:22 Blood Culture - Preliminary Blood No Growth after 24 hours Assessment and Plan (1) Enterocolitis Narrative/Plan: 73-year-old presenting with multiple loose bowel movements with CT findings suggestive of possible enterocolitis with fluid-filled colon. No bowel movement since presentation. Testing for Clostridium difficile was negative. Suspicion is for self limited viral or bacterial enteritis. Further stool studies pending. Current Visit: Yes Status: Acute Code(s): K52.9 - NONINFECTIVE GASTROENTERITIS AND COLITIS, UNSPECIFIED SNOMED Code(s): 86022407 (2) Abdominal pain Current Visit: Yes Status: Acute Code(s): R10.9 - UNSPECIFIED ABDOMINAL PAIN SNOMED Code(s): 25710810 (3) Intractable nausea and vomiting Current Visit: Yes Status: Acute Code(s): R11.2 - NAUSEA WITH VOMITING, UNSPECIFIED SNOMED Code(s): 999952638 Plan: Supportive care Diet advance to low fiber Await extended stool studies Okay for antiemetics as needed Okay for antidiarrheals as needed Continue to monitor stool output for allowing us to participate in the care of the patient we will continue to follow
[2018-11-07] MEDS: MELATONIN 3 MG TABLET PO SCH (21:22)
[2018-11-07] MEDS: lamoTRIgine 100 MG TAB PO SCH (21:22)
[2018-11-07] MEDS: traZODone HCL 50 MG TAB PO PRN (21:25)
[2018-11-08] MEDS: PANTOPRAZOLE 40 MG/10 ML VIAL IV SCH (07:42)
[2018-11-08] MEDS: VENLAFAXINE HCL 75 MG TAB PO SCH (07:45)
[2018-11-08] MEDS: HEPARIN SODIUM,PORCINE 5,000 UNIT/ML 1 ML VIAL SQ SCH ×2 (07:45→21:27)
[2018-11-08] MEDS: SODIUM CHLORIDE 0.9% 1,000 ML IV SCH ×2 (07:46→21:27)
[2018-11-08 07:56] LABS: Basophils # (A) 0.2 k/uL (0-0.2); Basophils % (A) 2 %; Eosinophils # (A) 0.5 k/uL (0-0.7); Eosinophils % (A) 6 %; HCT 36.8 % (39.0-53.0); HGB 12.8 gm/dL (13.0-17.5); Lymphocytes # (A) 1.1 k/uL (1.0-4.8); Lymphocytes % (A) 16 %; MCH 34.1 pg (25.0-35.0); MCHC 34.9 g/dL (31.0-37.0); MCV 97.6 fL (80.0-100.0); Mean Platelet Volume 6.6; Monocytes # (A) 0.6 k/uL (0-1.0); Monocytes % (A) 8 %; Neutrophils # (A) 4.6 k/uL (1.3-7.7); Neutrophils % (A) 65 %; Platelet Count 196 k/uL (150-450); RBC 3.77 m/uL (4.30-5.90); RDW 12.2 % (11.5-15.5); WBC 7.1 k/uL (3.8-10.6)
[2018-11-08 08:10] LABS: African American GFR (CKD) >90 (>60 ml/min/1.73 sqM); Anion Gap 5 mmol/L; Blood Urea Nitrogen 6 mg/dL (9-20); Calcium 8.6 mg/dL (8.4-10.2); Carbon Dioxide 27 mmol/L (22-30); Chloride 108 mmol/L (98-107); Glucose 84 mg/dL (74-99); Potassium 3.7 mmol/L (3.5-5.1); Sodium 140 mmol/L (137-145)
[2018-11-08 11:25] LABS: Erythrocyte Sedimentation Rate 10 mm/hr (0-15)
--- NOTE | 2018-11-08 12:42 | P.PN ---
Subjective Progress Note Date: 11/08/18 Principal diagnosis: Enterocolitis Leukocytosis possibly reactive Possible viral gastroenteritis 73-year-old male patient presented to ED with several days of abdominal pain, nausea/vomiting and diarrhea; computed tomography scan of abdomen in ED showed extensive scattered fluid-filled small bowel loops throughout the abdomen and pelvis; liquid stool in colon and scattered thickening of the right side of: Suspicious for enterocolitis 11/08/2018 Patient is seen and evaluated in room at bedside; continues to complain of nausea and diarrhea; no further vomiting; patient relates that he has had recurrent episodes of nausea and vomiting and passed few weeks requiting multiple admissions and is very apprehensive of going back home with her current symptoms Vital signs are reviewed temperature of 97.1, pulse 64, respirations 16 and blood pressure of 113/67 with SpO2 of 97% on room air Lab review shows CBC that's unremarkable. Marked improvement in white blood count of 20 upon admission down to 7.1 this morning; sodium of 140, potassium 3.7, BUN of 6 and creatinine of 0.75 Patient has been seen and evaluated by GI; no further workup is recommended; we appreciate GI input in management of this patient We will continue with current management for another 24 hours; possible discharge in next 24-48 hours if remains stable Objective - Vital Signs Vital signs: Vital Signs Temp 96.9 F L 11/08/18 05:00 Pulse 71 11/08/18 05:00 Resp 18 11/08/18 05:00 BP 93/53 11/08/18 05:00 Pulse Ox 96 11/08/18 05:00 Intake & Output 11/07/18 11/08/18 11/08/18 18:59 06:59 18:59 Intake Total 1680 650 Balance 1680 650 Intake: IV 600 Sodium Chloride 0.9% 1, 600 000 ml @ 75 mls/hr IV . [id number] [facility] Rx#:[id number] Oral 1080 650 Other: Voiding Method Toilet Urinal # Voids 2 2 # Bowel Movements 1 - Exam PHYSICAL EXAMINATION: GENERAL: The patient is alert and oriented x3, not in any acute distress. Well developed, well nourished. HEENT: Pupils are round and equally reacting to light. EOMI. No scleral icterus. No conjunctival pallor. Normocephalic, atraumatic. No pharyngeal erythema. No thyromegaly. CARDIOVASCULAR: S1 and S2 present. No murmurs, rubs, or gallops. PULMONARY: Chest is clear to auscultation, no wheezing or crackles. ABDOMEN: Soft, nontender, nondistended, normoactive bowel sounds. No palpable organomegaly. MUSCULOSKELETAL: No joint swelling or deformity. EXTREMITIES: No cyanosis, clubbing, or pedal edema. NEUROLOGICAL: Gross neurological examination did not reveal any focal deficits. SKIN: No rashes. - Labs CBC & Chem 7: 11/08/18 07:08 11/08/18 07:08 Labs: Abnormal Lab Results - Last 24 Hours (Table) 11/07/18 11/08/18 11/08/18 Range/Units 14:00 07:08 07:08 RBC 3.77 L (4.30-5.90) m/uL Hgb 12.8 L (13.0-17.5) gm/dL Hct 36.8 L (39.0-53.0) % Chloride 108 H (98-107) mmol/L BUN 6 L (9-20) mg/dL C-Reactive Protein 17.0 H (<10.0) mg/L Stool Lactoferrin POSITIVE H (NEGATIVE) Microbiology - Last 24 Hours (Table) 11/07/18 14:00 Stool Culture - Preliminary Stool 11/06/18 15:22 Blood Culture - Preliminary Blood No Growth after 24 hours Assessment and Plan Assessment: 1. Acute nausea vomiting and diarrhea; possible internal colitis - Start patient on clear liquid diet; GI is consulted for further recommendations 2. Rule out acute diarrheal disorder versus viral gastroenteritis - Stool for C. diff toxin, culture and sensitivity along with ova and parasites; stool samples could be obtained yet - We will hold off on IV antibiotic treatment; monitor patient clinically and await GI recommendations 3. Leukocytosis; possibly reactive; blood cultures are done upon admission; monitor CBC and follow blood cultures 4. History of pneumothorax; chronic chest tube drainage 5. Anxiety/depression/PTSD; stable on current regimen 6. DVT prophylaxis CODE STATUS; full code Time with Patient: Greater than 30
[2018-11-08] MEDS ORDERED: LOPERAMIDE 2 MG CAP PO PRN (18:41)
--- NOTE | 2018-11-08 18:45 | P.PN ---
Subjective Progress Note Date: 11/08/18 Principal diagnosis: Diarrhea Patient is seen lying in bed reporting that he tolerated increase in his diet yesterday. Still denying any abdominal pain. No bowel movements when he was seen yesterday, currently he is reporting having some bowel movements which are overall improved. Objective - Vital Signs Vital signs: Vital Signs Temp 97.1 F L 11/08/18 12:13 Pulse 64 11/08/18 12:13 Resp 16 11/08/18 12:13 BP 113/67 11/08/18 12:13 Pulse Ox 97 11/08/18 12:13 Intake & Output 11/07/18 11/08/18 11/08/18 18:59 06:59 18:59 Intake Total 1680 650 600 Balance 1680 650 600 Intake: IV 600 600 Sodium Chloride 0.9% 1, 600 600 000 ml @ 75 mls/hr IV . [id number] [facility] Rx#:[id number] Oral 1080 650 Other: Voiding Method Toilet Urinal # Voids 2 2 2 # Bowel Movements 1 - Exam On physical examination, patient appears comfortable in no apparent distress. HEAD: Normocephalic, atraumatic. EYES: No scleral icterus. No conjunctival injection. MOUTH: No lesions, tongue midline. NECK: Trachea midline, no gross abnormalities. CHEST: Clear to auscultation with no wheezing or rhonchi appreciated. HEART: Regular rate and rhythm. ABDOMEN: Soft, obese. Bowel sounds are positive. No organomegaly. No guarding or rigidity. EXTREMITIES: No pedal edema. SKIN: No rashes, no jaundice. NEUROLOGIC: Alert and oriented x3. No focal deficits. - Labs CBC & Chem 7: 11/08/18 07:08 11/08/18 07:08 Labs: Abnormal Lab Results - Last 24 Hours (Table) 11/07/18 11/08/18 11/08/18 Range/Units 14:00 07:08 07:08 RBC 3.77 L (4.30-5.90) m/uL Hgb 12.8 L (13.0-17.5) gm/dL Hct 36.8 L (39.0-53.0) % Chloride 108 H (98-107) mmol/L BUN 6 L (9-20) mg/dL C-Reactive Protein 17.0 H (<10.0) mg/L Stool Lactoferrin POSITIVE H (NEGATIVE) Microbiology - Last 24 Hours (Table) 11/06/18 15:22 Blood Culture - Preliminary Blood No Growth after 48 hours 11/07/18 14:00 Stool Culture - Preliminary Stool Assessment and Plan (1) Enterocolitis Narrative/Plan: 73-year-old presenting with multiple loose bowel movements with CT findings suggestive of possible enterocolitis with fluid-filled colon. No bowel movement since presentation. Testing for Clostridium difficile was negative. Suspicion is for self limited viral or bacterial enteritis. Testing for Giardia and cryptosporidium negative with normal ESR and slightly elevated CRP. Lactoferrin was also found to be elevated. Current Visit: Yes Status: Acute Code(s): K52.9 - NONINFECTIVE GASTROENTERITIS AND COLITIS, UNSPECIFIED SNOMED Code(s): 55373520 (2) Abdominal pain Current Visit: Yes Status: Acute Code(s): R10.9 - UNSPECIFIED ABDOMINAL PAIN SNOMED Code(s): 04368995 (3) Intractable nausea and vomiting Current Visit: Yes Status: Acute Code(s): R11.2 - NAUSEA WITH VOMITING, UNSPECIFIED SNOMED Code(s): 994617973 Plan: Supportive care Diet advance to low fiber Testing for Giardia and cryptosporidium negative Lactoferrin positive but nonspecific Have added loperamide as needed for diarrhea, extensive discussion with the patient to be like Leila and use of antidiarrheals to avoid constipation Okay for discharge if otherwise clinically stable Patient unsure of exact date of last colonoscopic exam, but would benefit from follow-up with gastroenterology in 2-4 weeks after discharge to ensure improvement of symptoms and for discussion of possible endoscopic evaluation Thank you for allowing us to participate in the care of the patient we will follow
[2018-11-08] MEDS: MELATONIN 3 MG TABLET PO SCH (21:26)
[2018-11-08] MEDS: traZODone HCL 50 MG TAB PO PRN (21:26)
[2018-11-08] MEDS: lamoTRIgine 100 MG TAB PO SCH (21:27)
[2018-11-09 02:16] VITALS: RESP 18
[2018-11-09 07:13] VITALS: BP 102/65; PULSE 69; TEMP 98.2
[2018-11-09] MEDS: PANTOPRAZOLE 40 MG/10 ML VIAL IV SCH (07:23)
[2018-11-09] MEDS: HEPARIN SODIUM,PORCINE 5,000 UNIT/ML 1 ML VIAL SQ SCH (07:24)
[2018-11-09] MEDS: VENLAFAXINE HCL 75 MG TAB PO SCH (07:24)
[2018-11-09 08:14] LABS: Basophils # (A) 0.2 k/uL (0-0.2); Basophils % (A) 3 %; Eosinophils # (A) 0.4 k/uL (0-0.7); Eosinophils % (A) 8 %; HCT 38.4 % (39.0-53.0); HGB 13.5 gm/dL (13.0-17.5); Lymphocytes # (A) 1.1 k/uL (1.0-4.8); Lymphocytes % (A) 20 %; MCH 33.9 pg (25.0-35.0); MCHC 35.1 g/dL (31.0-37.0); MCV 96.6 fL (80.0-100.0); Mean Platelet Volume 6.5; Monocytes # (A) 0.5 k/uL (0-1.0); Monocytes % (A) 9 %; Neutrophils # (A) 3.2 k/uL (1.3-7.7); Neutrophils % (A) 58 %; Platelet Count 212 k/uL (150-450); RBC 3.97 m/uL (4.30-5.90); RDW 12.1 % (11.5-15.5); WBC 5.6 k/uL (3.8-10.6)
[2018-11-09 08:21] LABS: African American GFR (CKD) >90 (>60 ml/min/1.73 sqM); Anion Gap 6 mmol/L; Blood Urea Nitrogen 10 mg/dL (9-20); Calcium 8.9 mg/dL (8.4-10.2); Carbon Dioxide 29 mmol/L (22-30); Chloride 107 mmol/L (98-107); Glucose 89 mg/dL (74-99); Potassium 3.9 mmol/L (3.5-5.1); Sodium 142 mmol/L (137-145)
--- NOTE | 2018-11-09 14:17 | P.DS ---
Providers Date of admission: 11/08/18 13:18 Expected date of discharge: 11/09/18 Attending physician: Parveen Harris MD Consults: 11/06/18 14:52 Consult Physician Routine Consulting Provider: Myron Eng Consult Reason/Comments: Intractable nausea vomiting, colitis Do you want consulting provider notified?: Yes Primary care physician: Stated None Hospital Course: 73-year-old male patient presented to ED with several days of abdominal pain, nausea/vomiting and diarrhea; computed tomography scan of abdomen in ED showed extensive scattered fluid-filled small bowel loops throughout the abdomen and pelvis; liquid stool in colon and scattered thickening of the right side of: Suspicious for enterocolitis 1. Acute nausea vomiting and diarrhea; possible internal colitis - Start patient on clear liquid diet; GI is consulted for further recommendations 2. Rule out acute diarrheal disorder versus viral gastroenteritis - Stool for C. diff toxin, culture and sensitivity along with ova and parasites; stool samples could be obtained yet - We will hold off on IV antibiotic treatment; monitor patient clinically and await GI recommendations 3. Leukocytosis; possibly reactive; blood cultures are done upon admission; monitor CBC and follow blood cultures 4. History of pneumothorax; chronic chest tube drainage 5. Anxiety/depression/PTSD; stable on current regimen 6. DVT prophylaxis Patient's workup remained unremarkable; patient was followed by GI and no further workup was recommended; she was discharged home in stable condition Patient Condition at Discharge: Fair Plan - Discharge Summary Discharge Rx Participant: No New Discharge Prescriptions: Continue lamoTRIgine [LaMICtal] 200 mg PO HS Venlafaxine HCl 75 mg PO DAILY Omeprazole 20 mg PO DAILY traZODone HCL 50 mg PO HS PRN PRN Reason: Insomnia Melatonin 3 mg PO HS Discharge Medication List Melatonin 3 mg PO HS 11/06/18 [History] Omeprazole 20 mg PO DAILY 11/06/18 [History] Venlafaxine HCl 75 mg PO DAILY 11/06/18 [History] lamoTRIgine [LaMICtal] 200 mg PO HS 11/06/18 [History] traZODone HCL 50 mg PO HS PRN 11/06/18 [History] Follow up Appointment(s)/Referral(s): None,Stated [Primary Care Provider] - 1-2 days Myron Eng MD [STAFF PHYSICIAN] - 3 Weeks (office closed client is to call and make appt) Patient Instructions/Handouts: Colitis (ED) Discharge Disposition: HOME SELF-CARE
== END 2018-11-09 10:53 | disposition home or self-care (01) | DRG 641 ==
LOC: EC 08:59 → 4MS4W 14:51 → OBSVTOIN 11-08 13:18
PROVIDERS: ADMIT Internal Medicine; ATTEND Internal Medicine
DX: E86.0 Dehydration (principal); K52.9 Noninfective gastroenteritis and colitis, unspecified; F43.10 Post-traumatic stress disorder, unspecified; F32.9 Major depressive disorder, single episode, unspecified; F17.200 Nicotine dependence, unspecified, uncomplicated; Z82.5 Family history of asthma and other chronic lower respiratory diseases; Z87.828 Personal history of other (healed) physical injury and trauma
CPT/HCPCS: 36415; 74018; 74177; 80048; 80053; 80306; 81001; 82150; 82550; 83630; 83690; 83735; 84484; 85025; 85652; 86140; 87040; 87045; 87046; 87324; 87328; 87329; 93005; 96361; 96365; 96375; 99285